=== PATIENT | male | born 1950 | race Caucasian/White ===

== ENCOUNTER 2019-09-26 01:01 | Emergency (ER) | payer OTHER, MEDICARE, BC ==
--- NOTE | 2019-09-26 02:55 | ER Document Report ---
ED General - General Chief Complaint: Right arm pain s/p fall Stated Complaint: FALL Time Seen by Provider: 09/26/19 02:38 [facility]: [facility] [Primary Care Provider] - Follow up as needed Information source: Patient - HPI Notes: This is a 69-year-old male who presents complaining of right shoulder and bilateral lower extremity pain. Patient states he accidentally fell at home 2 days ago and was seen at a outside emergency room for injuries related to his fall. Patient states that he had x-rays done of his right shoulder and his left hip; patient states film results were reported to him as a negative. Patient goes on to say that he was discharged with a prescription for 600 mg ibuprofen which helped some but now his pain is worse and the reason he is here is for pain relief. Patient agreed to sign release of information to obtain records from outside ED visit 2 days ago. Patient arrived via EMS; EMS reported that when they asked if they could do anything else for him, he stated "some Dilaudid would help." This MD has access [place] controlled substance database and has found that the patient has received multiple prescriptions for significant amounts of oxycodone within the past 2 years. - Related Data Allergies/Adverse Reactions: Penicillins Allergy (Verified 09/26/19 01:24) Lactolose Adverse Reaction (Mild, Uncoded 09/26/19 01:25) Home Medications: see box on table Past Medical History - General Information source: Patient - Social History Smoking Status: Unknown if Ever Smoked Family History: Reviewed & Not Pertinent Patient has suicidal ideation: No Patient has homicidal ideation: No Review of Systems - Review of Systems Constitutional: No symptoms reported EENT: No symptoms reported Cardiovascular: No symptoms reported Respiratory: No symptoms reported Gastrointestinal: No symptoms reported Genitourinary: No symptoms reported Male Genitourinary: No symptoms reported Musculoskeletal: Joint pain, Muscle pain Skin: No symptoms reported Hematologic/Lymphatic: Easy bruising Neurological/Psychological: No symptoms reported -: Yes All other systems reviewed and negative Physical Exam - Vital signs Vitals: Temp Pulse Resp BP Pulse Ox 98 F 79 15 113/59 L 88 L 09/26/19 01:21 09/26/19 01:21 09/26/19 01:21 09/26/19 01:21 09/26/19 01:21 - Notes Notes: PHYSICAL EXAMINATION: GENERAL: Well-appearing, well-nourished and in no acute distress. HEAD: Atraumatic, normocephalic. EYES: Pupils equal round and reactive to light, extraocular movements intact, sclera anicteric, conjunctiva are normal. ENT: nares patent, oropharynx clear without exudates. Moist mucous membranes. NECK: Normal range of motion, supple without lymphadenopathy LUNGS: Breath sounds clear to auscultation bilaterally and equal. No wheezes rales or rhonchi. HEART: Regular rate and rhythm without murmurs ABDOMEN: Soft, nontender, normoactive bowel sounds. No guarding, no rebound. No masses appreciated. EXTREMITIES: No obvious deformities seen on extremity exam NEUROLOGICAL: No focal neurological deficits. Moves all extremities spontaneously and on command. PSYCH: Normal mood, normal affect. SKIN: Patient has a large area of ecchymosis in the region of his right shoulder. Patient also has a couple of areas of skin breakdown on his anterior lower legs bilaterally. Course - Re-evaluation Re-evalutation: 09/26/19 03:56 Records from outside ED reviewed by this MD. Patient had right humerus films done that showed no evidence of fracture. - Vital Signs Vital signs: Temp Pulse Resp BP Pulse Ox 98 F 79 15 113/59 L 92 09/26/19 01:21 09/26/19 01:21 09/26/19 01:21 09/26/19 01:21 09/26/19 02:30 09/26/19 03:55 Signs reviewed by this MD. Discharge - Discharge Clinical Impression: Contusion of right shoulder Qualifiers: Encounter type: initial encounter Qualified Code(s): S40.011A - Contusion of right shoulder, initial encounter Condition: Good Disposition: HOME, SELF-CARE Instructions: Contusion ([facility]) Additional Instructions: Return to the Emergency Department without delay if any worse. HOME CARE INSTRUCTIONS & INFORMATION: Thank you for choosing us for your medical needs. We hope you're satisfied with the care you received. After you leave, you must properly care for your problem and, at the same time, observe its progress. Any condition can change. Some illnesses can change rapidly over hours or days. If your condition worsens, return to the Emergency Department or see your physician promptly. ABOUT YOUR X-RAYS AND EKG'S: If you had an EKG or X-rays taken, they have been read by the Emergency Physician. The X-rays and EKG's will also be read by a Radiologist or Dyeing Machine Tender within 24 hours. If discrepancies are noted, you will be notified by telephone. Please be certain the ED has a correct telephone number & address where you can be reached. Also, realize that some fractures or abnormalities do not show up on initial X-rays. If your symptoms continue, see your physician. ABOUT YOUR LABORATORY TEST: If you had laboratory tests, the results have been reviewed by the Emergency Physician. Some test results (for example cultures) may not be available for several days. You will be contacted if any test result shows you need additional treatment. Please be certain the ED has a correct telephone number and address where you can be reached. ABOUT YOUR MEDICATIONS: You will receive instructions on how to take your medicine on the prescription label you receive. Additional information may be provided by the Pharmacy. If you have questions afterwards, call the ED for clarification or further instructions. Some prescribed medications may cause drowsiness. Do not perform tasks such as driving a car or operating machinery without consulting your Pharmacist. If you feel you need a refill of pain medication, your condition will need re-evaluation. Please do not call for a refill of any medication. ABOUT YOUR SIGNATURE: Signature of this document acknowledges to followin. Understanding that you received emergency treatment and that you may be released before al medical problems are known or treated. Please be certain the ED has a correct phone number & address where you can be reached. 2. Acknowledgement that you will arrange for follow-up care as recommended. 3. Authorization for the Emergency Physician to provide information to your follow-up Physician in order to maximize your care. AT ANY TIME, IF YOUR SYMPTOMS CHANGE SIGNIFICANTLY OR WORSEN OR YOU DEVELOP NEW SYMPTOMS, RETURN TO THE EMERGENCY DEPARTMENT IMMEDIATELY FOR RE-EVALUATION. OUR GOAL IS TO PROVIDE EXCELLENT MEDICAL CARE! WE HOPE THAT WE HAVE MET YOUR EXPECTATIONS DURING YOUR EMERGENCY DEPARTMENT VISIT AND THAT YOU FEEL YOU HAVE RECEIVED EXCELLENT CARE! Prescriptions: Oxycodone HCl [Oxy-Ir 5 mg Tablet] 5 mg PO Q6H PRN #10 tab PRN Reason: severe pain [facility] [[facility]] - Follow up as needed
[2019-09-26] MEDS ORDERED: OXYCODONE HCL IR 5 MG TABLET PO ONE (04:04)
[2019-09-26 04:55] VITALS: BP 106/56
== END 2019-09-26 04:55 | disposition home or self-care (01) ==
LOC: ER 01:01
DX: S40.011A Contusion of right shoulder, initial encounter (principal); M79.601 Pain in right arm; M79.605 Pain in left leg; M79.604 Pain in right leg; W19.XXXA Unspecified fall, initial encounter; Y92.009 Unspecified place in unspecified non-institutional (private) residence as the place of occurrence of the external cause; Z88.0 Allergy status to penicillin
CPT/HCPCS: 99283

== ENCOUNTER 2020-04-28 13:05 | Emergency (ER) | payer OTHER, BC ==
--- NOTE | 2020-04-28 14:45 | ER Document Report ---
ED Medical Screen (RME) - General Chief Complaint: Psych Problem Stated Complaint: IVC W/PAPERS Time Seen by Provider: 04/28/20 14:27 Primary Care Provider: [facility] [Primary Care Provider] - Follow up as needed Notes: Patient is a 69-year-old male who presents to the emergency department with IVC paperwork. According to the paperwork, yesterday he was hallucinating. He refused to come to the emergency department. Patient states that he did fall 2 days ago. Denies any altered mental status, other than with the IVC paperwork says. She is currently on Plavix. He is also on the transplant list for a liver transplant. Patient states that every Friday he goes to [facility] to have a paracentesis. Patient states that he is supposed to go there today. Exam: Bilateral lower extremity edema. I have greeted and performed a rapid initial assessment of this patient. A comprehensive ED assessment and evaluation of the patient, analysis of test results and completion of medical decision making process will be conducted by an additional ED providers. - Related Data Allergies/Adverse Reactions: Penicillins Allergy (Verified 09/26/19 01:24) Lactolose Adverse Reaction (Mild, Uncoded 09/26/19 01:25) Past Medical History - Social History Frequency of alcohol use: None Drug Abuse: None Physical Exam - Vital signs Vitals: Temp Pulse Resp BP Pulse Ox 97.4 F 66 20 115/68 97 04/28/20 14:20 04/28/20 14:20 04/28/20 14:20 04/28/20 14:20 04/28/20 14:20 Course - Vital Signs Vital signs: Temp Pulse Resp BP Pulse Ox 97.4 F 66 20 115/68 97 04/28/20 14:20 04/28/20 14:20 04/28/20 14:20 04/28/20 14:20 04/28/20 14:20 - Laboratory Laboratory results interpreted by me: 04/28/20 13:31 POC Glucose 319 H Doctor's Discharge - Discharge Referrals: [facility] [Primary Care Provider] - Follow up as needed
[2020-04-28 15:16] LABS: ABSOLUTE EOSINOPHILS # (AUTO) 0.1 10^3/uL (0.0-0.6); ABSOLUTE LYMPHOCYTES (AUTO) 0.2 10^3/uL (0.5-4.7); ABSOLUTE MONOCYTES (AUTO) 0.4 10^3/uL (0.1-1.4); ABSOLUTE NEUT (AUTO) 3.3 10^3/uL (1.7-8.2); BASOPHILS % (AUTO) 0.5 % (0-2); EOSINOPHILS % (AUTO) 2.2 % (0-6); HEMATOCRIT 29.1 % (37.9-51.0); HEMOGLOBIN 10.3 g/dL (13.5-17.0); LYMPHOCYTES % (AUTO) 5.7 % (13-45); MEAN CORPUSCULAR HEMOGLOBIN 34.9 pg (27.0-33.4); MEAN CORPUSCULAR HGB CONC 35.5 g/dL (32.0-36.0); MEAN CORPUSCULAR VOLUME 98 fl (80-97); MONOCYTES % (AUTO) 9.9 % (3-13); RED BLOOD COUNT 2.96 10^6/uL (4.35-5.55); RED CELL DISTRIBUTION WIDTH 15.8 % (11.5-14.0); SEGMENTED NEUTROPHILS % (AUTO) 81.7 % (42-78); TOTAL CELLS COUNTED % (AUTO) 100 %; WHITE BLOOD COUNT 4.1 10^3/uL (4.0-10.5)
[2020-04-28 15:35] LABS: ALBUMIN 3.3 g/dL (3.5-5.0); ALKALINE PHOSPHATASE 245 U/L (38-126); ANION GAP 6 (5-19); ASPARTATE AMINO TRANSFERASE 38 U/L (17-59); BILIRUBIN,DIRECT 0.3 mg/dL (0.0-0.4); BLOOD UREA NITROGEN 55 mg/dL (7-20); CALCIUM 9.2 mg/dL (8.4-10.2); CARBON DIOXIDE 21 mmol/L (22-30); CHLORIDE 105 mmol/L (98-107); GLUCOSE 311 mg/dL (75-110); POTASSIUM 4.8 mmol/L (3.6-5.0); TOTAL PROTEIN 6.7 g/dL (6.3-8.2)
[2020-04-28 15:40] LABS: ACETAMINOPHEN < 10 ug/mL (10-30); ALCOHOL < 10 mg/dL (NONE DETECTED); SALICYLATE < 1.0 mg/dL (2.0-20.0)
[2020-04-28 15:52] LABS: PLATELET COUNT 47 10^3/uL (150-450)
--- NOTE | 2020-04-28 16:27 | RADIOLOGY REPORT (SQ) ---
EXAM DESCRIPTION: VENOUS UNILATERAL LOWER IMAGES COMPLETED DATE/TIME: 04/28/2020 4:19 pm REASON FOR STUDY: RLE increased swelling COMPARISON: None. TECHNIQUE: Dynamic and static marcus scale and color images acquired of the right leg venous system. S elected spectral images acquired with additional compression and augmentation maneuvers. The contrala teral common femoral vein and saphenofemoral junction were also imaged. Images stored on PACS. LIMITATIONS: None. FINDINGS: COMMON FEMORAL: Normal phasicity, compression and augmentation. No visualized echogenic ma terial on marcus scale. No defects on color images. FEMORAL: Normal compression and augmentation. No visualized echogenic material on mracus scale. No defe cts on color images. POPLITEAL: Normal compression, augmentation. No visualized echogenic material on marcus scale. No defec ts on color images. CALF VESSELS: Normal compression, augmentation. No visualized echogenic material on marcus scale. No de fects on color images. GSV and SSV: Normal compression, augmentation. No visualized echogenic material on marcus scale. No def ects on color images. ANY DEEP VENOUS INSUFFICIENCY: Not evaluated. ANY EVIDENCE OF POPLITEAL CYST: No. OTHER: No other significant finding. CONTRALATERAL COMMON FEMORAL VEIN AND SAPHENOFEMORAL JUNCTION: Normal phasicity, compression and augmentation. No visualized echogenic material on marcus scale. No de fects on color images. IMPRESSION: NO EVIDENCE DVT OR SVT IN THE RIGHT LEG. TECHNICAL DOCUMENTATION: JOB ID: [id number] [employer]- All Rights Reserved Reading location - IP/workstation name: [email or web address]
[2020-04-28 18:12] LABS: APPEARANCE,URINE SLIGHTLY-CLOUDY; BILIRUBIN,URINE NEGATIVE (NEGATIVE); COLOR,URINE YELLOW; GLUCOSE, URINE 150 mg/dL (NEGATIVE); KETONES,URINE NEGATIVE (NEGATIVE); LEUKOCYTE ESTERASE,URINE MODERATE (NEGATIVE); NITRITE,URINE POSITIVE (NEGATIVE); PROTEIN,URINE NEGATIVE (NEGATIVE); URINE AMPHETAMINES SCREEN NEGATIVE; URINE BARBITURATES SCREEN NEGATIVE; URINE BENZODIAZEPINES SCREEN NEGATIVE; URINE COCAINE SCREEN NEGATIVE; URINE MARIJUANA (THC) SCREEN NEGATIVE; URINE METHADONE SCREEN NEGATIVE; URINE PHENCYCLIDINE SCREEN NEGATIVE; URINE SPECIFIC GRAVITY 1.017; UROBILINOGEN,URINE NEGATIVE mg/dL (<2.0)
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
[2020-04-28] MEDS ORDERED: INSULIN LISPRO 100 UNIT/ML 3 ML VIAL SUBCUT ONE (18:43)
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
--- NOTE | 2020-04-28 19:30 | EKG REPORT ---
SEVERITY:- ABNORMAL ECG - SINUS RHYTHM RBBB AND LAFB : Confirmed by: Misael Bedoya 28-Apr-2020 19:29:28
[2020-04-28 22:00] VITALS: BP 112/70
== END 2020-04-28 22:00 | disposition home or self-care (01) ==
LOC: ER 13:05
DX: R44.3 Hallucinations, unspecified (principal); Z72.820 Sleep deprivation; K75.9 Inflammatory liver disease, unspecified; K72.90 Hepatic failure, unspecified without coma; F32.9 Major depressive disorder, single episode, unspecified; I45.10 Unspecified right bundle-branch block; I25.10 Atherosclerotic heart disease of native coronary artery without angina pectoris; I10 Essential (primary) hypertension; E11.9 Type 2 diabetes mellitus without complications; Z95.5 Presence of coronary angioplasty implant and graft; Z87.891 Personal history of nicotine dependence; Z88.0 Allergy status to penicillin
CPT/HCPCS: 93005; 99285; 36415; 82962; 80307 ×4; 82140; 85025; 80053; 81001; 93971; 93010; J1815